=== PATIENT | female | born 1985 | race Caucasian/White ===

== ENCOUNTER 2021-06-17 17:30 | Emergency (ER) | payer OTHER ==
[2021-06-17] MEDS ORDERED: ACETAMINOPHEN 500 MG TABLET (FP) PO ONE (18:02)
[2021-06-17 18:03] VITALS: BP 118/71; PULSE 86; TEMP 98.8; BMI 30.7
[2021-06-17] MEDS ORDERED: ONDANSETRON 4 MG TABLET PO ONE (18:23)
[2021-06-17] MEDS ORDERED: ONDANSETRON *ODT* 4 MG TABLET ONE (18:31)
[2021-06-17] MEDS ORDERED: ACETAMINOPHEN 325 MG TABLET (FP) ONE (18:31)
== END 2021-06-17 19:05 | disposition home or self-care (01) ==
LOC: FER 17:30
DX: K52.9 Noninfective gastroenteritis and colitis, unspecified (principal)
CPT/HCPCS: 0241U-QW; 84703; 87807; 99283-25; C9803-CS; U0003; U0005